=== PATIENT | female | born 1980 | race Caucasian/White ===

== ENCOUNTER → 2024-03-03 18:16 | Day surgery (SDC) | payer BC, SELFPAY ==
[2024-03-03] VITALS (17 sets, daily range): BP systolic 81–110; BP diastolic 42–66; BMI 26.6
[2024-03-03 14:16] LABS: % Basophils 0.6 % (0-2); % Eosinophils 2.8 % (0-6); % Immature Granulocytes 0.4 % (0-0.5); % Lymphocytes 22.5 % (20.5-51.1); % Monocytes 5.9 % (1.7-9.3); % Neutrophils 67.8 % (42.2-75.2); Absolute Basophils 0.1 10^3/uL (0-0.2); Absolute Eosinophils 0.3 10^3/uL (0-0.7); Absolute Monocytes 0.5 10^3/uL (0.1-0.6); Absolute Neutrophils 6.1 10^3/uL (1.4-6.5); Hematocrit 35.7 % (37.0-47.0); Hemoglobin 12.9 g/dL (12.0-16.0); Mean Corp Hgb Conc. 36.1 g/dL (33.0-37.0); Mean Corpuscular Hgb 31.3 pg (27.0-31.0); Mean Corpuscular Volume 86.7 fL (81.0-99.0); Mean Platelet Volume 9.4 fL (7.4-10.4); Nucleated Red Blood Cells % 0 %; Platelet Count 365 10^3/uL (130-400); Red Blood Cell Count 4.12 10^6/uL (4.20-5.40); Red Cell Dist. Width 11.9 % (11.5-14.5)
[2024-03-03 14:41] LABS: ALT (SGPT) 15 U/L (0-35); AST (SGOT) 25 U/L (14-36); Albumin 4.4 g/dl (3.5-5.0); Alkaline Phosphatase 46 U/L (38-126); Blood Urea Nitrogen 20 mg/dl (7-17); Calcium 9.9 mg/dl (8.4-10.2); Carbon Dioxide 25 mmol/L (22-30); Chloride 102 mmol/L (98-107); Glucose 104 mg/dl (70-99); Potassium 5.4 mmol/L (3.5-5.1); Sodium 138 mmol/L (135-145); Total Bilirubin 0.4 mg/dl (0.2-1.3); Total Protein 7.1 g/dl (6.3-8.2); eGFR > 60.00
[2024-03-03 16:21] LABS: Beta HCG Quantitative 716.28 mIU/ml
--- NOTE | 2024-03-03 16:40 | ED.GENMED ---
History of Present Illness
General
Chief Complaint: Problems
Time Seen by Provider: 03/03/24 16:06
History of Present Illness
History of Present Illness:
43-year-old female, currently 8 weeks gestational age presents to the emergency department for evaluation of acute onset of right lower quadrant abdominal pain that began this morning. Patient follows with [facility], had
vaginal bleeding last week and was sent for an outpatient ultrasound 6 days ago that showed no evidence of IUP, last hCG level was 710. Her bleeding had improved until today when she developed her abdominal pain and noticed vaginal bleeding as
well. First ended as a first trimester spontaneous . Denies fevers or chills. Pain was more severe this morning but has since improved
Review of Systems
Review of Systems
Allergies reviewed?: Yes
All Other Systems: ROS reviewed and negative except as documented in HPI and ROS
Phy Exam
Physical Exam
Physical Exam:
GEN: Well appearing, NAD, WDWN
HEENT: Oral mucosa moist, no scleral icterus
Cardiac: Regular rate
Lung: No respiratory distress, no tachypnea
Abdomen: Soft, mild left and right lower abdominal tenderness, no peritoneal signs
MSK: No gross deformity or injuries
Skin: Good color, no pallor or jaundice, no rashes
Neuro: AO x3, moves all extremities freely
Psych: Calm, cooperative
Course
Orders/Labs/Results
Orders:
Orders
03/03/24 13:57
US W Transvaginal Urgent
Comment: pt had positive hcg, 7 weeks 5 days
Reason For Exam: severe RLQ abd pain,
03/03/24 14:00
Complete Blood Count/With Diff Urgent
Comprehensive Metabolic Panel Urgent
HCG, Beta Quantitative [Beta HCG Quantitative] Urgent
Is this a screen?: No
03/03/24 16:38
0.9% Sodium Chloride 1000 ml [Nss] 1,000 ml IV BOLUS
03/03/24 16:45
Consult CONSTRUCTION REP [CONSTRUCTION REP CONSULT] Urgent
Consulting Provider: Gisela Sam
Was physician already notified: Yes
03/03/24 17:11
Type+Screen Urgent
03/03/24 17:26
Ondansetron Injectable [Zofran] 4 mg .ROUTE .STK-MED ONE
03/03/24 17:27
HYDROmorphone [Dilaudid] 0.5 mg .ROUTE .STK-MED ONE
03/03/24 17:33
ABO2 Urgent
BBK Wristband Number:
03/03/24 17:35
H&H Stat
PTT Stat
03/03/24 17:36
Ondansetron Injectable [Zofran] 4 mg IV NOW STA
03/03/24 17:37
HYDROmorphone [Dilaudid] 0.5 mg IV NOW STA
03/03/24 17:43
Fentanyl Citrate/Pf [Sublimaze] 100 mcg .ROUTE .STK-MED ONE
Lidocaine 2% Mpf [Xylocaine Mpf 2%] 100 mg .ROUTE .STK-MED ONE
Midazolam HCl [Versed] 2 mg .ROUTE .STK-MED ONE
Propofol [Diprivan] 20 ml .ROUTE .STK-MED
Rocuronium [place] [Rocuronium] 50 mg .ROUTE .STK-MED ONE
03/03/24 17:45
0.9% Sodium Chloride 1000 ml [Nss] 1,000 ml IV 2,000 mls/hr
03/03/24 17:51
Dexamethasone Sod Phosphate [Decadron] 20 mg .ROUTE .STK-MED ONE
Ondansetron Injectable [Zofran] 4 mg .ROUTE .STK-MED ONE
03/03/24 18:03
Fentanyl Citrate/Pf [Sublimaze] 25 mcg IV PACU-Q5MPRN PRN
Fentanyl Citrate/Pf [Sublimaze] 50 mcg IV PACU-Q5MPRN PRN
Meperidine [Demerol] 12.5 mg IV PACU-Q5MPRN PRN
Prochlorperazine [Compazine] 5 mg IV PACU-ONCEPRN PRN
Notify MD As Directed
Notify physician if: for SDS patients with known or suspected sleep obstructive sleep apnea, monitor in the
PACU.
Notify MD for any apneic/desaturation episodes
O2 Therapy [RESP] Urgent
Titrate/Wean O2 to maintain O2 sat greater than (%): 92
Special Instructions: -Provide supplemental oxygen to achieve O2 sat of 92% or greater.
-After 15 min, may wean O2 and discontinue if patient is able to maintain O2 sat of 92%
or greater during recovery period.
If patient is a discharge home, without oxygen therapy, notify anestheiologist if
unable to maintain O2 SAT of 92% or greater on room air for MD clearance.
03/03/24 18:04
Bupivacaine Mpf 0.25% [Sensorcaine-Mpf 0.25% Vial] 30 ml .ROUTE .STK-MED ONE
03/03/24 18:15
Normosol (Mult Electrolytes) [Normosol-R] 1,000 ml IV PER PROTOCOL
03/03/24 18:30
Acetaminophen 1000MG/100Ml [Ofirmev] 1,000 mg in 100 ml .ROUTE .STK-MED
03/03/24 18:34
Phenylephrine HCl/0.9% NaCl [Jairon-Synephrine] 1,000 mcg .ROUTE .STK-MED ONE
03/03/24 18:55
Sugammadex Sodium [Bridion] 200 mg .ROUTE .STK-MED ONE
03/03/24 19:42
OR Pathology Routine
Pre-Operative Diagnosis: ectopic pregnncy
Post-Operative Diagnosis: ectopic
Operative Procedure: Diagnostic laparoscopy with right salpingectomy
Surgeon: Flaco
Circulating Nurse: Jo-Ann Cho
Specimen Type: right fallopian tube probable ectopic
03/03/24 23:00
Ondansetron Injectable [Zofran] 4 mg IV PACU-ONCEPRN PRN
Abnormal Lab Results
03/03/24 03/03/24
14:00 17:35
RBC 4.12 L 10^6/uL
(4.20-5.40)
Hgb 11.8 L g/dL
(12.0-16.0)
Hct 35.7 L % 31.8 L %
(37.0-47.0) (37.0-47.0)
MCH 31.3 H pg
(27.0-31.0)
Potassium 5.4 H mmol/L
(3.5-5.1)
BUN 20 H mg/dl
(7-17)
Glucose 104 H mg/dl
(70-99)
03/03/24 17:35
03/03/24 14:00
Vital Signs
Initial and Last Documented VS:
Initial Vital Signs
Temp Pulse Resp BP Pulse Ox
97.6 F 72 18 91/51 99
03/03/24 13:49 03/03/24 13:49 03/03/24 13:49 03/03/24 13:49 03/03/24 13:49
Last Documented Vital Signs
Temp Pulse Resp BP Pulse Ox
97.5 F 64 16 96/51 100
03/03/24 19:48 03/03/24 20:00 03/03/24 20:00 03/03/24 20:00 03/03/24 20:00
Information
Weeks gestation: N/A
Location: Location: (ectopic)
MDM/Problems Addressed
MDM/Problems Addressed:
On initial evaluation the patient appeared quite comfortable however is notably mildly hypotensive, gradually throughout the emergency department stay she became more uncomfortable and visibly pale with hypotension. [facility] was consulted urgently and
decision was made to take the patient for operative intervention under the suspicion of a ruptured ectopic . Patient's blood pressure did improve with aggressive IV fluid resuscitation and she was stable upon transport to the operating room
Of note prior to the disposition decision I did reach out to her outside [facility] and was noted that her ultrasound Thursday showed a similar complex cystic structure in the right adnexa however no free fluid or hydrosalpinx
*Critical Care Note
Total Time (30-74mins, 75-104mins- exclusive of procedures): 50 minutes
comment:
Critical care time: 50 minutes
Critical care time was exclusive of: Separately billable procedures, treating other patients, and teaching time
Critical care was necessary to treat or prevent imminent or life-threatening deterioration of the following conditions: ruptured Ectopic
Critical care time spent personally by me on the following activities:
[x] Review of old charts
[x] Obtaining history from patient or surrogate
[x] Ordering and review of the laboratory studies
[x] Ordering and review of radiographic studies
[x] Ordering and performing treatments and interventions
[x] Patient patient's response to treatment
[x] Development of treatment plan with patient or surrogate
Update Note
Update Note:
Concerns for a developing ruptured ectopic given the free fluid in the adnexa as well as hydrosalpinx given the patient's reported severe pain that abruptly improved. She is mildly hypotensive however appears clinically stable, hemoglobin is
normal. [facility] consulted for bedside evaluation to determine next steps
ED Attending Note
-
Portions of this chart may have been created with voice recognition software.� Occasional wrong word or��sound alike� substitutions may have occurred due to the inherent limitations of voice recognition software.
Discharge Plan
Departure
Patient Disposition: OR
Date of Disposition: 03/03/24
Time of Disposition: 17:35
Presentation/result/management discussed w/ accepting /DO: WILLARD
Discharge Problem:
Ruptured ectopic
Interventions
Interventions:
*Risk Screen - Suicide Last Done: 03/03/24 13:49
*General Assessment Last Done: 03/03/24 13:49
*Neglect/Abuse Screening Last Done: 03/03/24 13:49
ED- Fall Risk Assessment Last Done: 03/03/24 17:07
*ED COVID-19 Vaccine History Last Done: 03/03/24 17:05
*Nursing Disposition Last Done: 03/03/24 18:00
ED-Female Genitourinary Assessment Last Done: 03/03/24 17:39
Discharge Date and Time
Discharge Date/Time: 03/03/24 18:00
[2024-03-03] MEDS: NSS 1000 IV ×2 (17:16→17:56)
[2024-03-03] MEDS: ZOFRAN 4 MG IV (17:31)
[2024-03-03] MEDS: DILAUDID 0.5 MG IV (17:35)
[2024-03-03 17:52] LABS: APTT 34.1 Sec (23.4-35.0)
[2024-03-03 18:18] LABS: Hematocrit 31.8 % (37.0-47.0); Hemoglobin 11.8 g/dL (12.0-16.0)
[2024-03-03] MEDS: DILAUDID 2 MG PO (21:11)
== END ==
LOC: EMR 13:45 → PACU 18:16
PROVIDERS: Physician Assistant; Student in an Organized Health Care Education/Training Program; ATTENDING PHYSICIAN Obstetrics & Gynecology; EMERGENCY PHYSICIAN Student in an Organized Health Care Education/Training Program; FAMILY PHYSICIAN Internal Medicine
DX: O00.101 Right tubal pregnancy without intrauterine pregnancy (principal); Z3A.08 8 weeks gestation of pregnancy
CPT/HCPCS: 59151; 88305; 76801; 76817; 80053; 84702; 85014; 85018; 85025; 85730; 86850; 86900; 86901; 96361; 96374; 96375; 99291; C1776